=== PATIENT | female | born 1960 | race Caucasian/White ===

== ENCOUNTER 2018-08-06 09:16 | Emergency (ER) | payer OTHER ==
[~2018-08-06] VITALS: Ht 180.3 cm; Wt 63.3 kg
[2018-08-06] MEDS ORDERED: ketorolac trometh inj. 60 MG/2 ML VIAL IM ONE (09:40)
[2018-08-06 09:47] VITALS: BP 120/89
== END 2018-08-06 09:49 | disposition home or self-care (01) ==
LOC: ER 09:17
DX: M54.5 Low back pain (principal)
CPT/HCPCS: 96372; 99283; J1885

== ENCOUNTER 2019-05-18 09:37 | Outpatient (CLI) | payer OTHER ==
[2019-05-18 10:54] LABS: BASOPHILS # (AUTO) 0.1 X10'3 (0-0.2); BASOPHILS % (AUTO) 1.5 % (0-1); EOSINOPHILS # (AUTO) 0.1 X10'3 (0-0.9); EOSINOPHILS % (AUTO) 3.2 % (0-6); HEMATOCRIT 42.7 % (35.0-45.0); HEMOGLOBIN 14.2 g/dl (12.0-16.0); LYMPHOCYTES # (AUTO) 1.3 X10'3 (1.1-4.8); LYMPHOCYTES % (AUTO) 33.9 % (21-51); MEAN CORPUSCULAR HEMOGLOBIN 32.3 PG (27.0-31.0); MEAN CORPUSCULAR HGB CONC 33.1 g/dL (33.0-36.5); MEAN CORPUSCULAR VOLUME 97.5 FL (78-98); MEAN PLATELET VOLUME 7.7 FL (7.4-10.4); MONOCYTES # (AUTO) 0.4 X10'3 (0-0.9); MONOCYTES % (AUTO) 9.8 % (2-12); NEUTROPHILS # (AUTO) 1.9 X10'3 (1.8-7.7); NEUTROPHILS % (AUTO) 51.6 % (42-75); PLATELET COUNT 281 X10'3 (140-440); RED BLOOD COUNT 4.38 X10'6 (4.20-5.60); RED CELL DISTRIBUTION WIDTH 12.2 % (11.5-14.5); WHITE BLOOD COUNT 3.7 X10'3 (4.5-11.0)
[2019-05-18 11:24] LABS: ALANINE AMINOTRANSFERASE 35 U/L (12-78); ALBUMIN 3.8 G/DL (3.4-5.0); ALKALINE PHOSPHATASE 72 IU/L (46-116); ANION GAP 5 (8-16); ASPARTATE AMINO TRANSFERASE 23 U/L (10-37); BILIRUBIN,TOTAL 0.4 MG/DL (0.1-1.0); BLOOD UREA NITROGEN 21 MG/DL (7-18); BUN/CREATININE RATIO 24.4 (6.6-38.0); CALCIUM 9.4 MG/DL (8.5-10.1); CHLORIDE 106 MMOL/L (99-107); CHOL/HDL RATIO 2.6 (0.00-4.99); CHOLESTEROL 145 MG/DL (0-200); CREATININE 0.86 MG/DL (0.40-0.90); HDL CHOLESTEROL 56 MG/DL (35-60); LDL CHOLESTEROL 81 MG/DL (50-100); SODIUM 141 MMOL/L (135-145); TOTAL CARBON DIOXIDE 30.2 MMOL/L (24-32); TOTAL PROTEIN 7.5 G/DL (6.4-8.2); TRIGLYCERIDES 59 MG/DL (20-135); eGFR 68 ML/MIN
[2019-05-18 11:26] LABS: GLUCOSE 57 MG/DL (70-104)
== END 2019-05-18 23:59 | disposition home or self-care (01) ==
LOC: LAB 09:37
PROVIDERS: ATTEND Physician Assistant
DX: Z00.00 Encounter for general adult medical examination without abnormal findings (principal); Z79.899 Other long term (current) drug therapy
CPT/HCPCS: 36415; 80053; 80061; 84439; 84443; 84481; 85025

== ENCOUNTER 2019-06-25 01:46 | Outpatient (CLI) | payer SELFPAY ==
[2019-06-25 10:38] LABS: HEMOGLOBIN A1C 5.2 % (4.5-6.2)
[2019-06-25 10:48] LABS: CHOL/HDL RATIO 2.74 (0.00-4.99)
== END 2019-06-25 23:59 | disposition home or self-care (01) ==
LOC: HW HEART 01:46
DX: Z13.6 Encounter for screening for cardiovascular disorders (principal); R00.1 Bradycardia, unspecified
CPT/HCPCS: 36415

== ENCOUNTER 2019-09-30 12:24 | Outpatient (CLI) | payer BC, OTHER | END 2019-09-30 23:59 | disposition home or self-care (01) | LOC: RAD 12:24 | PROVIDERS: ATTEND Physician Assistant | DX: M75.101 Unspecified rotator cuff tear or rupture of right shoulder, not specified as traumatic (principal); M94.211 Chondromalacia, right shoulder | CPT/HCPCS: 73221 ==

== ENCOUNTER 2019-10-23 09:00 | Outpatient (CLI) | payer OTHER | END 2019-10-23 23:59 | disposition home or self-care (01) | LOC: RAD 09:00 | PROVIDERS: ATTEND Physician Assistant | DX: M25.511 Pain in right shoulder (principal); S43.491A Other sprain of right shoulder joint, initial encounter | CPT/HCPCS: 73222 ==

== ENCOUNTER 2020-01-01 05:36 | Day surgery (SDC) | payer OTHER ==
[2019-12-29 11:50] LABS: BASOPHILS % (AUTO) 1.2 % (0-1); EOSINOPHILS # (AUTO) 0.1 X10'3 (0-0.9); LYMPHOCYTES # (AUTO) 1.3 X10'3 (1.1-4.8); LYMPHOCYTES % (AUTO) 39.5 % (21-51); MEAN CORPUSCULAR HEMOGLOBIN 32.9 PG (27.0-31.0); MEAN CORPUSCULAR VOLUME 96.6 FL (78-98); MEAN PLATELET VOLUME 7.3 FL (7.4-10.4); MONOCYTES # (AUTO) 0.3 X10'3 (0-0.9); MONOCYTES % (AUTO) 9.9 % (2-12); NEUTROPHILS # (AUTO) 1.6 X10'3 (1.8-7.7); NEUTROPHILS % (AUTO) 47.4 % (42-75); PRE OP HEMATOCRIT 43.2 % (35.0-45.0); PRE OP HEMOGLOBIN 14.7 g/dL (12.0-16.0); PRE OP PLATELET COUNT 270 X10'3 (140-440); RED BLOOD COUNT 4.48 X10'6 (4.20-5.60); RED CELL DISTRIBUTION WIDTH 12.7 % (11.5-14.5)
[2019-12-29 12:00] LABS: ALBUMIN 3.8 G/DL (3.4-5.0); ALKALINE PHOSPHATASE 79 IU/L (46-116); BLOOD UREA NITROGEN 18 MG/DL (7-18); CALCIUM 8.9 MG/DL (8.5-10.1); CHLORIDE 106 MMOL/L (99-107); PRE OP ALT 31 U/L (30-65); PRE OP ANION GAP 6 (8-16); PRE OP AST 27 U/L (10-37); PRE OP BILIRUB, TOTAL 0.4 MG/DL (0.0-1.0); PRE OP POTASSIUM 4.4 MMOL/L (3.4-5.1); PRE OP SODIUM 142 MMOL/L (135-145); TOTAL CARBON DIOXIDE 30.4 MMOL/L (24-32); TOTAL PROTEIN 7.6 G/DL (6.4-8.2); eGFR 64 ML/MIN
[2019-12-29 12:01] LABS: PRE OP GLUCOSE 92 MG/DL (70-104)
[2020-01-01] VITALS (9 sets, daily range): BP systolic 106–119; BP diastolic 69–77
[~2020-01-01] VITALS: Ht 177.8 cm; Wt 60.9 kg
[~2020-01-01 05:36] MED LIST: NO HOME MEDS; VANCOMYCIN INJ 1000 MG in NORMAL SALINE 250ml IV.SOLN IV ONE; cefazolin/dext.iso 2gm/100ml 100 ML IV ONE; famotidine 20mg tablet PO ONE; ringers solution, lacted 1,000 ML IV SCH
[2020-01-01] MEDS ORDERED: LIDOcaine 1% (10mg/ml) 2ml vial ONE (06:05)
[2020-01-01] MEDS ORDERED: cloNIDine hcl/PF 100mcg/ml inj ONE (07:06)
[2020-01-01] MEDS ORDERED: midazolam 2 mg/2 ml injection ONE (07:08)
[2020-01-01] MEDS ORDERED: fentaNYL/PF 50MCG/1 ML 2ML syringe ONE (07:08)
[2020-01-01] MEDS ORDERED: ondansetron/PF 4mg/2ml inj ONE (07:20)
[2020-01-01] MEDS ORDERED: acetaminophen 1000 MG/100ml vial IV ONE (07:20)
[2020-01-01] MEDS ORDERED: sevoflurane 250ml liquid IH ONE (07:20)
[2020-01-01] MEDS ORDERED: ROPIVAcaine 0.5% (5mg/ml) 30ml vial ONE (08:03)
[2020-01-01] MEDS ORDERED: propofol inj 20 ML IV ONE (08:03)
[2020-01-01] MEDS ORDERED: LIDOcaine 2% (20mg/ml) 5ml vial ONE (08:03)
[2020-01-01] MEDS ORDERED: dexamethasone sod phosphate 4mg/ml inj. ONE ×2 (08:03)
[2020-01-01] MEDS ORDERED: LIDOcaine 1%/PF 5ML 10 MG/ML VIAL ONE (08:03)
[2020-01-01] MEDS ORDERED: rocuronium 10mg/ml inj IV ONE (08:03)
[2020-01-01] MEDS ORDERED: ringers solution, lacted 1,000 ML IV SCH (08:28)
[2020-01-01] MEDS ORDERED: meperidine/PF 25mg/ml syringe IV PRN ×3 (08:30)
[2020-01-01] MEDS ORDERED: morphine 4 MG/ML inj SYRINge IV PRN (08:30)
[2020-01-01] MEDS ORDERED: proCHLORperazine 10 MG/2 ml inj IV PRN (08:30)
[2020-01-01] MEDS ORDERED: ondansetron/PF 4mg/2ml inj IV PRN (08:30)
[2020-01-01] MEDS ORDERED: morphine 2 MG/ML inj. syringe IV PRN (08:30)
[2020-01-01] MEDS ORDERED: triamcinolone acetonide 40mg/ml inj ONE (08:48)
[2020-01-01] MEDS ORDERED: BUPIVAcaine/PF 2.5 mg/ml (0.25%) 30ml vial ONE (08:52)
[2020-01-01] MEDS ORDERED: glycopyrrolate 0.2mg/ml inj ONE (09:15)
[2020-01-01] MEDS ORDERED: neostigmine methylsulfate 1 MG/ML 10ml vial ONE (09:15)
--- NOTE | 2020-01-01 09:22 | NUR ---
Received from OR via [facility], accompanied by Anesthesiologist DR GOLDEN and report given by Anesthesiologist. PT DROWSY, DENIES PAIN, RIGHT SHOULDER W/ABD PADS COVERING INCISION, CDI, SHOULDER IN IMMOBILIZER, PT W/ISB, UNABLE TO MOVE FINGERS/ARM. BLANKET WARMER APPLIED FOR TEMP OF 35.7. Addendum: 01/01/20 at 0945 by Sharlene Garcia RN Amended: Links added.
--- NOTE | 2020-01-01 10:52 | NUR ---
D/C INSTRUCTIONS GIVEN AND GONE OVER W/PT WHO VERBALIZED UNDERSTANDING, PT D/CD TO HOME VIA W/C TO PRIVATE VEHICLE W/O INCIDENT. Addendum: 01/01/20 at 1123 by Sharlene Garcia RN Amended: Links added.
== END 2020-01-01 10:52 | disposition home or self-care (01) ==
LOC: PAS 05:36
PROVIDERS: ATTEND Orthopaedic Surgery
DX: S43.431A Superior glenoid labrum lesion of right shoulder, initial encounter (principal); S46.011A Strain of muscle(s) and tendon(s) of the rotator cuff of right shoulder, initial encounter; M75.21 Bicipital tendinitis, right shoulder; M75.41 Impingement syndrome of right shoulder; M75.01 Adhesive capsulitis of right shoulder; M19.011 Primary osteoarthritis, right shoulder; G89.18 Other acute postprocedural pain; Z79.899 Other long term (current) drug therapy; Z96.649 Presence of unspecified artificial hip joint; X58.XXXA Exposure to other specified factors, initial encounter; Y93.89 Activity, other specified; Y92.89 Other specified places as the place of occurrence of the external cause; Y99.8 Other external cause status
CPT/HCPCS: 29823; 29824; 29826; 29828; 36415; 64415; 80053; 85025; J0131; J0735; J1100; J2001; J2250; J2405; J2704; J2710; J3010; J3301; J3370; J3490; J7120; A4215; A4618; A6253; A6449; A7000; J2795

== ENCOUNTER 2023-02-26 15:18 | Emergency (ER) | payer BC ==
[~2023-02-26] VITALS: Ht 177.8 cm; Wt 62.8 kg
[~2023-02-26 15:18] MED LIST changes: -VANCOMYCIN INJ 1000 MG in NORMAL SALINE 250ml IV.SOLN IV ONE; -cefazolin/dext.iso 2gm/100ml 100 ML IV ONE; -famotidine 20mg tablet PO ONE; -ringers solution, lacted 1,000 ML IV SCH
[2023-02-26 15:21] VITALS: BP 137/89
[2023-02-26] MEDS ORDERED: diphenhydrAMINE 50 mg/ml inj IV ONE (15:40)
[2023-02-26] MEDS ORDERED: proCHLORperazine 10 MG/2 ml inj IV ONE (15:40)
[2023-02-26] MEDS ORDERED: normal saline 1000ml 1,000 ML IV ONE (15:40)
[2023-02-26 16:25] LABS: BASOPHILS % (AUTO) 0.5 % (0-1); EOSINOPHILS % (AUTO) 0.4 % (0-6); HEMATOCRIT 42.1 % (35.0-45.0); HEMOGLOBIN 14.4 g/dl (12.0-16.0); LYMPHOCYTES # (AUTO) 1.1 X10'3 (1.1-4.8); LYMPHOCYTES % (AUTO) 16.9 % (21-51); MEAN CORPUSCULAR HEMOGLOBIN 33.2 PG (27.0-31.0); MEAN CORPUSCULAR HGB CONC 34.2 g/dL (33.0-36.5); MEAN CORPUSCULAR VOLUME 97.3 FL (78-98); MEAN PLATELET VOLUME 7.7 FL (7.4-10.4); MONOCYTES # (AUTO) 0.4 X10'3 (0-0.9); NEUTROPHILS # (AUTO) 4.7 X10'3 (1.8-7.7); NEUTROPHILS % (AUTO) 76.2 % (42-75); PLATELET COUNT 302 X10'3 (140-440); RED BLOOD COUNT 4.33 X10'6 (4.20-5.60); RED CELL DISTRIBUTION WIDTH 12.7 % (11.5-14.5); WHITE BLOOD COUNT 6.2 X10'3 (4.5-11.0)
[2023-02-26 16:33] LABS: ALANINE AMINOTRANSFERASE 31 U/L (12-78); ALBUMIN 3.8 G/DL (3.4-5.0); ALBUMIN/GLOBULIN RATIO 1.1 (1.1-1.5); ALKALINE PHOSPHATASE 74 IU/L (46-116); ANION GAP 6 (8-16); ASPARTATE AMINO TRANSFERASE 21 U/L (10-37); BILIRUBIN,TOTAL 0.4 MG/DL (0.1-1.0); BLOOD UREA NITROGEN 19 MG/DL (7-18); BUN/CREATININE RATIO 21.6 (10.0-20.0); CALCIUM 9.3 MG/DL (8.5-10.1); CHLORIDE 103 MMOL/L (99-107); CREATININE 0.88 MG/DL (0.40-0.90); LIPASE 116 U/L (73-393); POTASSIUM 3.9 MMOL/L (3.5-5.1); SODIUM 139 MMOL/L (135-145); TOTAL CARBON DIOXIDE 30.1 MMOL/L (24-32); TOTAL PROTEIN 7.2 G/DL (6.4-8.2); eGFR 65 ML/MIN
[2023-02-26 16:44] LABS: GLUCOSE 134 MG/DL (70-104)
[2023-02-26] MEDS ORDERED: ONDA4TAB12 PO (17:11)
== END 2023-02-26 17:49 | disposition home or self-care (01) ==
LOC: ER 15:19
DX: R11.2 Nausea with vomiting, unspecified (principal); B34.9 Viral infection, unspecified
CPT/HCPCS: 36415; 80053; 83690; 85025; 96361; 96374; 96375; 99284; J0780; J1200; J7030

== ENCOUNTER → 2023-12-05 | Outpatient (CLI) | payer BC ==
[~2023-12-05] MED LIST changes: +ONDA4TAB12 PO
== END | disposition home or self-care (01) ==
LOC: RAD 10:13
PROVIDERS: ATTEND Physician Assistant
DX: R05.8 Other specified cough (principal); R07.89 Other chest pain
CPT/HCPCS: 71046

== ENCOUNTER 2025-09-06 12:15 | Outpatient (CLI) | payer BC ==
[~2025-09-06 12:15] MED LIST changes: +ONDA-243 PO; -ONDA4TAB12 PO
--- NOTE | 2025-09-06 13:29 | RADIOLOGY REPORT ---
CLINICAL INFORMATION: Left shoulder pain. TECHNIQUE: Multisequence multiplanar MRI images of the left shoulder were obtained without contrast. COMPARISON: None. FINDINGS: Acromioclavicular joint: There is moderate acromioclavicular hypertrophy and moderate edema. There is Type 2 acromion. Small amount of fluid in the subacromial / subdeltoid bursa. Rotator cuff tendons: Mild tendinosis of the distal supraspinatus, infraspinatus, and subscapularis tendons. Mild bursal surface fraying in the distal supraspinatus tendon just proximal to its insertion. Minimal thin interstitial tear in the distal infraspinatus tendon. Teres minor tendon is intact and otherwise unremarkable. Biceps tendon: No significant tendinosis. No evidence of attrition or tear. Labrum: Tear of the superior labrum extending anterior to posterior, possible bucket-handle component of the tear near the level of the biceps anchor. No propagation of the tear into the long head biceps tendon. Bones: No fracture or focal marrow contusion. Muscles: Normal muscle bulk. No atrophy. Other: No other significant findings. IMPRESSION: 1. Tear of the superior labrum extending anterior to posterior with possible bucket-handle component of the tear near the level of the biceps anchor. No propagation of the tear into the long head biceps tendon. 2. Moderate acromioclavicular hypertrophy with mild subacromial/subdeltoid bursitis. 3. Mild rotator cuff tendinosis with mild bursal surface fraying of the distal supraspinatus tendon and small thin interstitial tear in the distal infraspinatus tendon. No full-thickness or near full-thickness rotator cuff tear. 4. Additional findings as described above.
== END 2025-09-06 23:59 | disposition home or self-care (01) ==
LOC: MRI 12:15
PROVIDERS: ATTEND Physician Assistant
DX: S43.432A Superior glenoid labrum lesion of left shoulder, initial encounter (principal); M25.512 Pain in left shoulder; M89.312 Hypertrophy of bone, left shoulder; M75.52 Bursitis of left shoulder; M75.102 Unspecified rotator cuff tear or rupture of left shoulder, not specified as traumatic; X58.XXXA Exposure to other specified factors, initial encounter; Y93.89 Activity, other specified; Y92.89 Other specified places as the place of occurrence of the external cause; Y99.8 Other external cause status
CPT/HCPCS: 73221

== ENCOUNTER 2025-10-13 09:02 | Outpatient (CLI) | payer BC ==
--- NOTE | 2025-10-13 09:59 | RADIOLOGY REPORT ---
CLINICAL INDICATION: PAIN IN LEFT SHOULDER TECHNIQUE: DI SHOULDER, COMPLETE (MIN 2 VWS) COMPARISON: MR MRI UPPER EXTREMITY LEFT on DOS: 09/06/25, MRI UPPER EXTREMITY RIGHT on DOS: 10/23/19, MRI UPPER EXTREMITY RIGHT on DOS: 09/30/19 FINDINGS/IMPRESSION: : There is no evidence of acute fracture or dislocation. Soft tissues are unremarkable. Moderate degenerative changes.
== END 2025-10-13 23:59 | disposition home or self-care (01) ==
LOC: RAD 09:02
PROVIDERS: ATTEND Orthopaedic Surgery
DX: M19.012 Primary osteoarthritis, left shoulder (principal); M25.512 Pain in left shoulder; M75.02 Adhesive capsulitis of left shoulder
CPT/HCPCS: 73030

== ENCOUNTER 2025-10-13 09:06 | Outpatient (CLI) | payer BC ==
[2025-10-13 09:28] LABS: MEAN PLATELET VOLUME 7.2 FL (7.4-10.4); RED CELL DISTRIBUTION WIDTH 12.3 % (11.5-14.5)
[2025-10-13 10:12] LABS: CHOL/HDL RATIO 2.4 (0.00-4.99); LDL CHOLESTEROL 93 MG/DL (50-100)
== END 2025-10-13 23:59 | disposition home or self-care (01) ==
LOC: LAB 09:06
PROVIDERS: ATTEND Physician Assistant
DX: Z00.00 Encounter for general adult medical examination without abnormal findings (principal); Z79.899 Other long term (current) drug therapy
CPT/HCPCS: 36415; 80061; 82306; 84439; 84443; 85025